=== PATIENT | female | born 1955 | race Caucasian/White ===

== ENCOUNTER 2019-11-02 06:00 | Outpatient (RCR) | payer MEDICARE, OTHER, SELFPAY | END 2019-11-11 23:59 | disposition home or self-care (01) | LOC: GPT 06:00 | PROVIDERS: Family Provider Family Medicine; PCP Family Medicine; Referring Provider Nurse Practitioner Family; Visit Provider Nurse Practitioner Family | DX: M54.81 Occipital neuralgia (principal) | CPT/HCPCS: 97032; 97110; 97140; 97161; 97530 ==

== ENCOUNTER → 2022-04-30 08:41 | Outpatient (BNVA) | payer MEDICARE, OTHER, SELFPAY | PROVIDERS: Family Provider Family Medicine; PCP Family Medicine; Visit Provider Surgery | DX: K21.9 Gastro-esophageal reflux disease without esophagitis (principal); Z86.010 Personal history of colon polyps; R19.7 Diarrhea, unspecified; R10.9 Unspecified abdominal pain | CPT/HCPCS: 99203 ==

== ENCOUNTER 2022-05-08 06:28 | Day surgery (SDC) | payer MEDICARE, OTHER, SELFPAY ==
[2022-05-06 11:12] VITALS: BMI 36.3
[2022-05-08 06:48] VITALS: BP 188/121; PULSE 79; RESP 18; TEMP 36.1; O2SAT 93
[2022-05-08] MEDS: sodium chloride 0.9% 1,000 ML 30 ML IV (07:04)
--- NOTE | 2022-05-08 08:07 | W.PM.OPSUD ---
Surgery/Procedure H&P Update DATE OF PROCEDURE: May 08, 2022 DATE H&P PERFORMED: 04/30/22 PLANNED PROCEDURE: Operation Date: 05/08/22 08:00 Proposed Procedures p egd/colonoscopy [id number],K21.9,Z86.010,R19.7,R10.9(Not Applicable) - DO merlene Phillips Colonoscopy(Not Applicable) - Jeremiah Simeon DO
--- NOTE | 2022-05-08 08:28 | ANES.PREANE2 ---
Pre-Anesthetic Assessment Height/Weight: Height 1.6 m Weight 92.986 kg Temp Pulse Resp BP Pulse Ox O2 Del Method 97.0 F L 79 18 188/121 93 05/08/22 06:48 05/08/22 06:48 05/08/22 06:48 05/08/22 06:48 05/08/22 06:48 05/08/22 06:48 Operation Date: 05/08/22 08:00 Proposed Procedures p egd/colonoscopy [id number],K21.9,Z86.010,R19.7,R10.9(Not Applicable) - Jeremiah Simeon DO s Colonoscopy(Not Applicable) - Jeremiah Simeon DO Familial anesthetic complications: none Was Beta Sina taken within 24 hours: N/A Was Clonidine taken within 24 hours: N/A Last intake: Intake Last Liquid Date 05/07/22 Last Liquid Time 23:00 Last Solid Date 05/06/22 Last Solid Time 18:00 Social Tobacco (h/o smoking) and No alcohol Exam alert, oriented x 3, clear to auscultation bilaterally and regular rate & rhythm Airway Submandibular: within normal limits Cervical ROM: within normal limits Mallampati: Class II Dentition: false Pulmonary Chronic Obstructive Pulmonary Disease GI Gastroesophageal Reflux Disease Metabolic Morbid Obesity Anesthetic Plan ASA status: 3 Anesthesia: MAC Medications/Allergies Home Medications Medication Instructions Recorded Confirmed Last Taken Type ibuprofen 800 mg tablet 800 mg PO Q8H PRN pain #20 tabs 10/28/19 05/08/22 Unknown Rx omeprazole 20 mg capsule,delayed 20 mg PO ONCE 04/30/22 05/08/22 05/07/22 History release Allergies Allergy/AdvReac Type Severity Reaction Status Date / Time No Known Allergies Allergy Verified 05/08/22 06:46 Current Medications Generic Name Dose Route Start Last Admin Trade Name Freq PRN Reason Stop Dose Admin Sodium Chloride 1,000 mls @ 30 mls/hr 05/08/22 06:45 05/08/22 07:04 Sodium Chloride 0.9% IV 05/09/22 06:44 30 mls/hr .Q24H ARJUN Administration PFSH Anesthesia Medical History (Updated 04/30/22 @ 09:35 by Jeremiah Simeon DO) Abdominal pain Diarrhea GERD (gastroesophageal reflux disease) History of colon polyps Hx of diverticulitis of colon [address] Zuñiga Surgical History History of hip surgery right hip Hx of colonoscopy Social History Smoking and tobacco status: never smoked Alcohol intake: current Alcohol intake frequency: holidays/special occasions only Data Anesthesia Cardiac Studies: No Data to Display
[2022-05-08 08:51] VITALS: BP 158/93; PULSE 73; RESP 18; TEMP 36.2; O2SAT 92
[2022-05-08 09:04] VITALS: BP 162/89; PULSE 69; RESP 18; TEMP 36.1; O2SAT 91
--- NOTE | 2022-05-08 17:47 | ANE.PACU2 ---
Inpatient post-anesthesia follow up: Airway intact: Yes Vital signs: Temperature 97 F Pulse Rate 69 Respiratory Rate 18 Blood Pressure 162/89 Pulse Oximetry 91 Oxygen Delivery Me thod Room Air Oxygen Flow Rate Fraction of Inspir ed Oxygen Hydration adequate: Yes Nausea and vomiting: No Pain level: 1 Mental status: Baseline
== END 2022-05-08 09:19 | disposition home or self-care (01) ==
PROVIDERS: PCP Family Medicine; Visit Provider Surgery
PROC: 0DJ08ZZ Inspection of Upper Intestinal Tract, Via Natural or Artificial Opening Endoscopic (ICD-10-PCS; CPT 43235; principal; 2022-05-08 08:00)
PROC: 0DJD8ZZ Inspection of Lower Intestinal Tract, Via Natural or Artificial Opening Endoscopic (ICD-10-PCS; CPT 45378; 2022-05-08 08:00)
DX: R19.7 Diarrhea, unspecified (principal); Z86.010 Personal history of colon polyps; R10.9 Unspecified abdominal pain; K21.9 Gastro-esophageal reflux disease without esophagitis; K57.30 Diverticulosis of large intestine without perforation or abscess without bleeding; K63.5 Polyp of colon
CPT/HCPCS: 43235; 45385; 88305; J2704; J7030

== ENCOUNTER → 2022-06-04 17:31 | Outpatient (BNVA) | payer MEDICARE, OTHER, SELFPAY | PROVIDERS: PCP Family Medicine; Visit Provider Surgery | DX: Z09 Encounter for follow-up examination after completed treatment for conditions other than malignant neoplasm (principal); K63.5 Polyp of colon | CPT/HCPCS: 99212 ==

== ENCOUNTER 2025-01-11 05:00 | Outpatient (RCR) | payer MEDICARE, OTHER, SELFPAY | END 2025-02-10 23:59 | disposition home or self-care (01) | LOC: GPT 05:00 | PROVIDERS: Visit Provider General Practice | DX: M46.1 Sacroiliitis, not elsewhere classified (principal) | CPT/HCPCS: 97162 ==

== ENCOUNTER 2025-02-11 05:00 | Outpatient (RCR) | payer MEDICARE, OTHER, SELFPAY | END 2025-03-13 23:59 | disposition home or self-care (01) | LOC: GPT 05:00 | PROVIDERS: Visit Provider General Practice | DX: M46.1 Sacroiliitis, not elsewhere classified (principal); M54.50 Low back pain, unspecified; M25.551 Pain in right hip | CPT/HCPCS: 97110; 97112; 97140 ==

== ENCOUNTER 2025-03-14 05:00 | Outpatient (RCR) | payer MEDICARE, OTHER, SELFPAY | END 2025-04-12 23:59 | disposition home or self-care (01) | LOC: GPT 05:00 | PROVIDERS: Visit Provider General Practice | DX: M46.1 Sacroiliitis, not elsewhere classified (principal) | CPT/HCPCS: 97110; 97112; 97140 ==

== ENCOUNTER 2025-05-12 09:53 | Outpatient (RCR) | payer MEDICARE, OTHER, SELFPAY | END 2025-05-13 23:59 | disposition home or self-care (01) | LOC: GPT 09:53 | PROVIDERS: Visit Provider General Practice | DX: M46.1 Sacroiliitis, not elsewhere classified (principal); M54.50 Low back pain, unspecified; M25.551 Pain in right hip | CPT/HCPCS: 97110; 97112; 97140; 97164; 97530 ==

== ENCOUNTER 2025-06-02 08:52 | Outpatient (RCR) | payer MEDICARE, OTHER, SELFPAY | END 2025-06-02 09:51 | disposition home or self-care (01) | LOC: GPT 08:52 | PROVIDERS: Visit Provider General Practice | DX: M46.1 Sacroiliitis, not elsewhere classified (principal) | CPT/HCPCS: 97110; 97112; 97140; 97535 ==

== ENCOUNTER 2025-06-28 09:00 | Outpatient (RCR) | payer MEDICARE, OTHER, SELFPAY | END 2025-07-13 23:59 | disposition home or self-care (01) | LOC: GPT 09:00 | PROVIDERS: Visit Provider Family Medicine | DX: M25.551 Pain in right hip (principal); M25.552 Pain in left hip; M79.652 Pain in left thigh; M79.651 Pain in right thigh | CPT/HCPCS: 97110; 97112; 97162 ==